=== PATIENT | female | born 1955 | race Caucasian/White ===

== ENCOUNTER 2018-10-03 12:09 | Emergency (ER) | payer BC ==
[~2018-10-03] VITALS: Ht 175.3 cm; Wt 77.1 kg
--- NOTE | 2018-10-03 12:14 | NUR ---
Patient is AOx4 but unable to recall the names & exact dosages of her home medicines@this time.
--- NOTE | 2018-10-03 12:31 | NUR ---
Dr Gomez at the bedside for MSE.
--- NOTE | 2018-10-03 12:43 | NUR ---
Pt assissted to stand up w/ MD assisstance and myself. Pt able to walk w/o assisst. But as soon as she reached the door, pt lower herself on the floor as if her BLE give in at the same time. Pt was helped to the wheelchair w/o difficulty. VSS. Pt's at the bedside.
--- NOTE | 2018-10-03 13:40 | NUR ---
[facility] social human services assistants into speak with patient and
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
--- NOTE | 2018-10-03 14:31 | NUR ---
2:00pm: SW met with patient privately, and allowed her some time to express her thoughts and feelings. SW provided some more supportive counseling, and reviewed safety protocols with her. Patient stated that she knows to call 911 if she needs help. Patient also stated that she has a 26 year old daughter, Rema, who she can ask for help, if needed. SW stated that these are both good plans, and patient expressed feeling fine that she has people to call if she needs anything. SW asked patient if there were any other community resources that she may feel she needs, and patient declined at this time.
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
--- NOTE | 2018-10-03 15:32 | NUR ---
SW met with patient to check in on her. Patient was lying down in her assigned ED bed. Patient expressed feeling better since she was able to rest her back. SW discussed discharge plans with the patient, and patient stated "oh I'll be going home with my ". SW addressed any safety concerns, and patient stated "oh no, I'm fine". Patient then stated "I'm going to call my psychiatrist as soon as I go home so I can reschedule my appointment that I missed today". Patient expressed not having any concerns at this time. No further SS interventions required at this time.
--- NOTE | 2018-10-03 15:37 | NUR ---
3:35pm: Officer Halima informed this SW and FARHANA Driver that he had finished speaking with the patient, patient's Fili, and patient's daughter Rema. Officer Halima informed this SW and FARHANA Driver that patient's daughter would be taking patient home today.
--- NOTE | 2018-10-03 15:45 | NUR ---
Patient's daughter Nathalie here to worm picker patient
--- NOTE | 2018-10-03 15:52 | NUR ---
Patient discharged to home in stable conditon with daughter and grand daughter . Written and verbal after care instructions given. Patient verbalizes understanding of instructions.
[2018-10-03 15:54] VITALS: BP 128/72
== END 2018-10-03 15:55 | disposition home or self-care (01) ==
LOC: ER 12:09 → EDSEX 12:09 → ER 15:55
DX: S22.088A Other fracture of T11-T12 vertebra, initial encounter for closed fracture (principal); F41.9 Anxiety disorder, unspecified; F17.210 Nicotine dependence, cigarettes, uncomplicated; W01.0XXA Fall on same level from slipping, tripping and stumbling without subsequent striking against object, initial encounter; Y93.89 Activity, other specified; Y92.89 Other specified places as the place of occurrence of the external cause; Y99.8 Other external cause status
CPT/HCPCS: 70450; 72125; 72131; A4663